=== PATIENT | female | born 1995 | race Caucasian/White ===

== ENCOUNTER 2024-02-11 02:05 | Emergency (ER) | payer MEDICAID ==
[~2024-02-11] VITALS: Ht 170.2 cm; Wt 100.0 kg
[2024-02-11 02:13] VITALS: TEMP 98.7; O2SAT 99
[2024-02-11] MEDS: ACETAMINOPHEN 650MG/20.3ML UDC PO ONE (03:11)
[2024-02-11 05:27] VITALS: BP 109/66; PULSE 65; RESP 18; O2SAT 100
== END 2024-02-11 05:28 | disposition home or self-care (01) ==
LOC: ER 02:05
DX: J02.9 Acute pharyngitis, unspecified (principal)
CPT/HCPCS: 87070; 87430; 99283